=== PATIENT | female | born 1955 | race Caucasian/White ===

== ENCOUNTER → 2016-05-08 | Day surgery (SDC) | payer BC ==
[~2016-05-08] MED LIST: ACETAMINOPHEN/HYDROcodone 325 MG/5 MG TAB ONE; BUPIVACAINE/EPINEPHRINE 0.25% PF 30 ML VIAL ONE; KETOROLAC TROMETHAMINE 30 MG/ML (IVP) VIAL IV PUSH ONE; LACTATED RINGER'S 1000 ML INJ 1,000 ML ONE; MIDAZOLAM HCL 2 MG/2 ML VIAL ONE; NEOMYCIN/POLYMYXIN/BACITRACIN OINT 15 GM TUBE ONE; ONDANSETRON HCL 4 MG/2 ML VIAL IV PUSH ONE; PROPOFOL 200 MG/20 ML AMP IV ONE; ceFAZolin 2 GM PREMIX 50 ML ONE
--- NOTE | 2016-05-08 10:37 | TN ---
cc: PATRICIO PURVIS M.D. DATE OF SURGERY: 05/08/2016 PREOPERATIVE DIAGNOSIS Symptomatic right inguinal hernia. POSTOPERATIVE DIAGNOSIS 1. Symptomatic right inguinal hernia. 2. Right femoral hernia. PROCEDURE PERFORMED Open right inguinal hernia repair with mesh. SURGEON Patricio Purvis ANESTHESIA General LMA. COMPLICATIONS None. INDICATION FOR PROCEDURE Ms. Mckenzie is a pleasant 60-year-old female who had a symptomatic bulge in her right groin. She was seen and evaluated in the office. She was offered elective repair. Risks and benefits of repair was discussed with her and she was agreeable. DETAILS OF PROCEDURE The patient was identified, brought to the operating room and placed supine on the operating table. After adequate general anesthesia achieved was achieved with LMA, the right groin was prepped and draped in standard surgical fashion. 0.25% Marcaine was injected in the skin and subcutaneous tissue directly overlying the hernia which had been marked in the preoperative holding area. A transverse incision was made and dissection was carried down through the subcutaneous tissue using electrocautery Bovie. Cesia's fascia was identified and divided with electrocautery. The external oblique was then identified. The external oblique was opened along the course of its fibers. The inguinal canal was then entered. Meticulous dissection revealed an abdominal wall defect leading down into a femoral hernia. Using careful dissection the fat and hernia sac was dissected out of the femoral canal and brought back up into the incision. The fat and hernia sac was then reduced back into the abdominal cavity without any difficulty. A single Prolene suture was used to keep the hernia sac reduced for the repair. This was accomplished using a 2-0 Prolene, loosely re-approximating the muscle directly overlying the defect. Next, a piece of polypropylene mesh was brought up into the operative field. The mesh was then placed in an onlay technique and it was secured medially at Michael's ligament, inferiorly at Michael's ligament and onto the fascia of the right leg making sure that it was above the femoral defect. It was also secured superiorly to the transversalis fascia. With this the mesh was broadly covering over the abdominal wall defect and also covering the femoral canal. The shelving edge of the inguinal ligament was also sewn onto the mesh anteriorly. With this the defect was well-covered in two layers with generous mesh overlap in all directions. The wound was then washed out with normal saline solution. 0.25% Marcaine was injected. Attention was now directed to closure. Closure was accomplished using a 2-0 Vicryl for the external oblique, a 3-0 Vicryl for the Cesia's fascia and a 4-0 Vicryl for the skin. Sterile dressings were applied, and the patient was awakened and brought to Recovery in stable condition. MD SINTIA Crawford/ANITRA /10:09 AM /10:16 AM
== END | disposition home or self-care (01) ==
LOC: ESDC 08:01
PROVIDERS: ATTEND Surgery Trauma Surgery
DX: K40.90 Unilateral inguinal hernia, without obstruction or gangrene, not specified as recurrent (principal)
CPT/HCPCS: 00830; 49505; C1781; J0690; J1885; J2250; J2405; J3010; J7120